=== PATIENT | male | born 1955 | race Caucasian/White ===

== ENCOUNTER → 2018-03-28 | Outpatient (CLI) | payer BC | LOC: CIMAGING 10:49 | PROVIDERS: ATTEND Family Medicine | DX: M19.072 Primary osteoarthritis, left ankle and foot (principal); M25.072 Hemarthrosis, left ankle | CPT/HCPCS: 73610-PO ==

== ENCOUNTER → 2018-05-16 | Outpatient (CLI) | payer BC | LOC: CIMAGING 10:47 | PROVIDERS: ATTEND Family Medicine | DX: M17.11 Unilateral primary osteoarthritis, right knee (principal) | CPT/HCPCS: 73562-PO ==